=== PATIENT | female | born 1985 | race Caucasian/White ===

== ENCOUNTER 2017-07-04 13:15 | Emergency (ER) | payer OTHER, MEDICARE ==
[2017-07-04] MEDS ORDERED: NS 0.9% 1000 ML* 1,000 ML IV SCH (13:45)
--- NOTE | 2017-07-04 14:38 | RAD ---
HISTORY: Foreign body stuck in throat COMPARISONS: None VIEWS: 1: frontal portable view of the chest at 2:12 PM FINDINGS: LINES AND TUBES: None. CARDIOMEDIASTINAL SILHOUETTE: The cardiomediastinal silhouette is normal for portable technique. PLEURA: The costophrenic angles are sharp. No pleural abnormalities are noted. LUNG PARENCHYMA: The lungs are clear. ABDOMEN: The upper abdomen is clear. There is no subphrenic gas. BONES AND SOFT TISSUES: No bone or soft tissue abnormalities are noted. IMPRESSION: NO ACTIVE CARDIOPULMONARY DISEASE.
--- NOTE | 2017-07-04 15:08 | CONSULT ---
Consult Consult: Reason for consultation: Foreign body in esophagus HPI: 32 year old female with past medical history significant for rheumatoid arthritis and depression presents to ER complaining of inability to swallow. States she ate a chicken fajita and noted that it got hung up in her upper esophagus and would not move. States she attempted to try to drink water and it was immediately regurgitated. Admits to some chest discomfort but denies previous symptoms of heartburn, dysphagia, odynophagia, or recumbent regurgitation. States she took her morning medication without any difficulty. She was unable to keep anything down and came to ER for evaluation. No fevers or chills. Feels nauseous. Admits to having hayfever. REVIEW OF SYSTEMS: 10 point review of system is negative unless specified in HPI Past medical History Rheumatoid Arthritis Depression Chronic Headaches Past Surgical History Cholecystectomy ALL: Ergotamin, Sumatriptan, Hayfver MEDS Baclofen TAB* [Lioresal TAB*] 10 mg PO TID 11/24/14 [History Confirmed 11/29/14] Cyclobenzaprine HCl [Cyclobenzaprine HCl ER] 15 mg PO BEDTIME 11/24/14 [History Confirmed 11/29/14] Diclofenac Sodium [Diclofenac Sodium Dr] 50 mg PO Q8H PRN 11/24/14 [History Confirmed 11/29/14] Gabapentin TAB(NF) [Neurontin TAB(NF)] 900 mg PO TID 11/24/14 [History Confirmed 11/29/14] Ketorolac TAB * [Toradol TAB (NF)] 10 mg PO Q8H PRN 11/24/14 [History Confirmed 11/29/14] Levonorgestrel-Ethinyl Estradi [Seasonique] 1 tab PO BEDTIME 11/24/14 [History Confirmed 11/29/14] Magnesium Oxide (mg Supplement [Magnesium] 800 mg PO BID 11/24/14 [History Confirmed 11/29/14] Melatonin 3 mg PO BEDTIME 11/24/14 [History Confirmed 11/29/14] Metoclopramide TAB* [Reglan TAB*] 10 mg PO Q8H PRN 11/24/14 [History Confirmed 11/29/14] Midrin 1 tab PO Q4H PRN 11/24/14 [History Confirmed 11/29/14] Naproxen Sodium [Aleve] 220 mg PO Q8H PRN 11/24/14 [History Confirmed 11/29/14] Tramadol HCl 50 mg PO DAILY PRN 11/24/14 [History Confirmed 11/29/14] Tumeric 450 mg PO QAM 11/24/14 [History Confirmed 11/29/14] Vital Signs Temp Pulse Resp BP Pulse Ox 97.8 F 98 22 135/79 100 07/04/17 13:20 07/04/17 13:20 07/04/17 13:20 07/04/17 13:20 07/04/17 13:20 GEN: Well appearing female sitting in mild distress spitting in trough HEENT: Anicteric sclera oropharnyx clear CHEST clear to auscultation bilaterally CV: Regular rate rhythm s1 s2 no rubs or gallops ABD: Obese, Soft, nontender, normoactive bowel sounds, no hepatomegaly ExT: nontender, no obvious edema XRAY: no evidence of metallic objects or free air per my read. Impression: 32 year old female with above medical problems here with likely food impaction. 1. Foreign Body in Esophagus: Dysphagia likely related to food. Patient has history of allergies given possibility of EOE higher on differential, other causes including strictures, webs, rings, or less likely malignancy. Plan for urgent EGD today. 2. Please keep NPO and give IVFs. 3. Follow up recommendations post EGD.
[2017-07-04] MEDS ORDERED: fentaNYL* 50 MCG/ML 2 ML VIAL (100 MCG VIAL) ONE (15:32)
[2017-07-04] MEDS ORDERED: diPHENhydraMINE IV* 50 MG/ML 1 ml VIAL (BENADRYL) ONE (15:32)
[2017-07-04] MEDS ORDERED: Midazolam* 1 MG/ML 10 ML VIAL (10 MG) ONE (15:32)
[2017-07-04] MEDS ORDERED: Ondansetron INJ* 2 MG/ML VIAL ONE (16:03)
--- NOTE | 2017-07-04 17:38 | ED ---
Christiano Michaels Nikita, scribed for Slick Pitts MD on 07/04/17 at 1412 . Throat Pain/Nasal Congestion - HPI Summary HPI Summary: This patient is a 32 year old F presenting to ED with a chief complaint of foreign body stuck in throat since 1300. Pt ate chicken for lunch and could not swallow after. The CC is described as constant since onset. The patient rates the pain 3/10 in severity. Symptoms aggravated by nothing. Symptoms alleviated by nothing. Patient reports gagging, clear, productive cough, and hemoptysis. Patient denies dyspnea. - History of Current Complaint Chief Complaint: EDForeignBodyEsophag Time Seen by Provider: 07/04/17 13:58 Hx Obtained From: Patient Onset/Duration: Sudden Onset - 1300, Lasting Hours, Still Present Severity: Mild - 3/10 Cough: Other: - productive cough with clear sputum, hemoptysis, gagging; denies dyspnea - Allergies/Home Medications Allergies/Adverse Reactions: Allergies Allergy/AdvReac Type Severity Reaction Status Date / Time Ergotamine Allergy CHEST Verified 12/03/14 11:21 TIGHTNESS Sumatriptan [From Imitrex] Allergy CHEST Verified 12/03/14 11:21 TIGHTNESS HAYFEVER Allergy ITCHY EYES, Uncoded 12/03/14 11:21 PMH/Surg Hx/FS Hx/Imm Hx Endocrine/Hematology History: Denies: Hx Diabetes Musculoskeletal History: Reports: Hx Arthritis - POSSIBLE Denies: Hx Scoliosis Sensory History: Reports: Hx Contacts or Glasses - GLASSES Denies: Hx Hearing Aid Opthamlomology History: Reports: Hx Contacts or Glasses - GLASSES Neurological History: Reports: Hx Headaches - CHRONIC MIGRAINES, Hx Migraine - DAILY - CHRONIC, Other Neuro Impairments/Disorders - 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 11/01/2014 RADIO NERVE ABLATION IN NECK, OFFICE. CHOLECYSTECTOMY 11/29/2014 Hx Anesthesia Reactions: Yes - NAUSEA - (SPINAL OR EPIDURAL) Infectious Disease History: No Infectious Disease History: Denies: Traveled Outside the [place] in Last 30 Days - Family History Known Family History: Negative: Cardiac Disease, Diabetes - Social History Alcohol Use: None Substance Use Type: Reports: None Smoking Status (MU): Never Smoked Tobacco Review of Systems Positive: Other - foreign body stuck in throat, trouble swallowing, pain in throat, gagging Positive: Cough - clear, productive, hemoptysis, Other - denies dyspnea All Other Systems Reviewed And Are Negative: Yes Physical Exam Triage Information Reviewed: Yes Vital Signs On Initial Exam: Initial Vitals Temp Pulse Resp BP Pulse Ox 97.8 F 98 22 135/79 100 07/04/17 13:20 07/04/17 13:20 07/04/17 13:20 07/04/17 13:20 07/04/17 13:20 Vital Signs Reviewed: Yes Appearance: Positive: Well-Appearing, Pain Distress - moderate Skin: Positive: Warm, Skin Color Reflects Adequate Perfusion, Dry Head/Face: Positive: Normal Head/Face Inspection Eyes: Positive: EOMI, MARY BETH ENT: Positive: Other - Spitting clear sputum Neck: Positive: Supple, Nontender Respiratory/Lung Sounds: Positive: Clear to Auscultation, Breath Sounds Present , Other - coughing Cardiovascular: Positive: RRR Abdomen Description: Positive: Nontender, Soft Bowel Sounds: Positive: Present Musculoskeletal: Positive: Normal, Strength/ROM Intact Neurological: Positive: Normal, Sensory/Motor Intact, Alert, Oriented to Person Place, Time Psychiatric: Positive: Affect/Mood Appropriate Diagnostics - Vital Signs Vital Signs Temp Pulse Resp BP Pulse Ox 07/04/17 13:20 97.8 F 98 22 135/79 100 - Laboratory Lab Statement: Any lab studies that have been ordered have been reviewed, and results considered in the medical decision making process. - Radiology CXR Radiology Interpretation Completed By: Radiologist - NO ACTIVE CARDIOPULMONARY DISEASE. ED physician has reviewed this radiology report and agrees. Re-Evaluation - Re-Evaluation First Eval Re-Evaluation Time: 14:59 Comment: Pt asked what was going on with her condition/situation. EENT Course/Dx - Course Assessment/Plan: This patient is a 32 year old F presenting to ED with a chief complaint of foreign body stuck in throat since 1300. Pt ate chicken for lunch and could not swallow after. The CC is described as constant. The patient rates the pain 3/10 in severity. Symptoms aggravated by nothing. Symptoms alleviated by nothing. Patient reports gagging, clear, productive cough, and hemoptysis. Patient denies dyspnea. CXR reveals NO ACTIVE CARDIOPULMONARY DISEASE. ED physician has reviewed this radiology report and agrees. In the ED course, pt was given fluids. Medications reviewed. Consulted Dr. Bearden at 1403 who agrees to see pt in the ED. Pt will be discharged. Pt is agreeable with this plan. GI , DR BEARDEN, SAW PATIENT IN THE ED, DID AN EGD AND CLEARED THE ESOPHAGEAL FB. CRITICAL CARE TIME LESS THAN 30 MINUTES. - Diagnoses Provider Diagnoses: Esophageal foreign body - Provider Notifications Discussed Care Of Patient With: Otoniel Bearden Time Discussed With Above Provider: 14:03 Instructed by Provider To: Other - Consulted Dr. Bearden who agrees to see pt in the ED. Discharge - Discharge Plan Condition: Stable Disposition: HOME Patient Education Materials: Esophageal Foreign Body (ED) Referrals: Ronen Sutton MD [Primary Care Provider] - Additional Instructions: FOLLOW UP WITH GASTROENTEROLOGY. RETURN TO THE EMERGENCY DEPARTMENT FOR ANY WORSENING OF YOUR CONDITION OR QUESTIONS OR CONCERNS. The documentation as recorded by the Christiano cerna Nikita accurately reflects the service I personally performed and the decisions made by me, Slick Pitts MD.
[2017-07-04 17:50] VITALS: BP 138/64
--- NOTE | 2017-07-05 13:30 | PRO ---
PROCEDURE REPORT: DATE OF PROCEDURE: 07/04/17 PROCEDURE: EGD with foreign body removal using snare and Smith net. NARRATIVE: This is a 32-year-old female with past medical history significant for rheumatoid arthri tis, who presents to the emergency room complaining of dysphagia after eating chicken fajitas. The patient appeared to have a food bolus impaction and GI was consulted for evaluation. The patient melendez d a subsequent chest x-ray without any evidence of free air or metallic objects in the esophagus. MEDICATIONS GIVEN: 1. Diphenhydramine 50 mg. 2. Versed 9 mg. 3. Fentanyl 125 mcg. DESCRIPTION OF PROCEDURE: After the risks and benefits of the procedure were discussed in detail, s he verbalized understanding and agreed to the procedure. Informed consent was obtained. Time-out wa s then performed. The patient was placed in left lateral decubitus position. An EGD was then perfo rmed. Next, I advanced video adult gastroscope initially into the upper esophagus and noted foreign body impaction with food. Next, I elected to try to retrieve some of the food given its proximity to the upper esophageal sphincter. There were multiple attempts to intubate the esophagus and I was eventually successful using some gentle pressure as well as increasing the medication allowing the patient to be much more relaxed. I advanced a Smith net initially with some attempts to try to retri presley pieces of meat impaction; however, I was unsuccessful to grasp this again because of its proximi ty to the UES. The scope continued to move, so I aborted that maneuver. I then elected to try to c ut the meat impaction into smaller pieces using a cold snare, which was successful. Once I advanced the cold snare and cut through the meat impaction multiple times, I was able to find a small openin g and gently push the meat impaction all the way down into the stomach. The esophagus was examined in its entirety and was noted to have subtle rings. There was no obvious stricture noted. The subt le rings were suspicious for eosinophilic esophagitis. Next, I advanced the gastroscope into the st omach and there was no evidence of bleeding or ulcers on 4 views and retroflexion. Next, I advanced the gastroscope into the duodenum, which appeared completely normal without any evidence of active bleeding or old blood. The gastroscope was removed from the patient. Overall, the patient tolerate d the procedure well. There were no immediate complications. The patient remained in the emergency room for recovery. IMPRESSION: 1. Foreign body impaction, likely secondary to eosinophilic esophagitis. 2. Subtle circumferential rings throughout the esophagus, again suggestive of eosinophilic esophagi tis. 3. Normal stomach and duodenum. RECOMMENDATIONS: 1. Clear liquid diet today and soft diet tomorrow. 2. Start PPI therapy once daily with [id number] Prilosec and repeat EGD in 2 to 4 weeks, to t salena biopsies given the suspicion for eosinophilic esophagitis. [id number]/[facility] #: [id number]
== END 2017-07-04 17:49 | disposition home or self-care (01) ==
LOC: ED 13:15
DX: T18.108A Unspecified foreign body in esophagus causing other injury, initial encounter (principal); X58.XXXA Exposure to other specified factors, initial encounter; Y92.9 Unspecified place or not applicable; F32.9 Major depressive disorder, single episode, unspecified
CPT/HCPCS: 71010; 99156; 99157; 99282; J1200; J2250; J2405; J3010

== ENCOUNTER 2017-11-16 01:41 | Emergency (ER) | payer OTHER, MEDICARE ==
[2017-11-16] MEDS ORDERED: NS 0.9% 1000 ML* 1,000 ML IV ONE (02:31)
[2017-11-16] MEDS ORDERED: Ondansetron INJ* 2 MG/ML VIAL IV ONE (02:31)
[2017-11-16] MEDS ORDERED: Ketorolac INJ* 30 MG/ML 1 ML VIAL IV ONE (02:31)
[2017-11-16 03:13] LABS: ABS Basophils 0 10^3/ul (0-0.2); ABS Eosinophils 0 10^3/ul (0-0.6); ABS Lymphocytes 0.6 10^3/ul (1.0-4.8); ABS Monocytes 0.8 10^3/ul (0-0.8); ABS Neutrophils 3.3 10^3/ul (1.5-7.7); ABS Nucleated RBC 0 10^3/ul; Eosinophil % 0.1 % (0-6); Hematocrit 43 % (35-47); Lymphocyte % 12.1 % (25-47); Mean Corpuscular HGB Conc 35 g/dl (31-36); Mean Corpuscular Hemoglobin 34 pg (27-31); Mean Corpuscular Volume 96 fL (80-97); Mean Platelet Volume 9 um3 (7.4-10.4); Nucleated Red Blood Cells % 0.1; Platelet Count 158 10^3/ul (150-450); Red Blood Count 4.42 10^6/ul (4.0-5.4); Red Cell Distribution Width 13 % (10.5-15); White Blood Count 4.7 10^3/ul (3.5-10.8)
[2017-11-16 03:24] LABS: EGFR Non-African American 91.3 (>60)
[2017-11-16 04:01] LABS: Urine Appearance Cloudy; Urine Blood Negative (Negative); Urine Color Amber; Urine Ketones 1+ (Negative); Urine Protein 2+(100 mg/dL) (Negative); Urine Specific Gravity 1.026 (1.010-1.030); Urine Urobilinogen Positive (Negative)
[2017-11-16] MEDS ORDERED: cefTRIAXone(*) 1 GM in NS 0.9% 50 ML* 50 ML IVPB ONE (04:04)
[2017-11-16 04:43] VITALS: BP 104/64
--- NOTE | 2017-11-16 06:14 | ED ---
Colette Michaels Julia, scribed for Obed Márquez MD on 11/16/17 at 0410 . Abdominal Pain/Female - HPI Summary HPI Summary: This patient is a 32 year old F BIBA to [facility] accompanied by family with a chief complaint of constant sudden L sided abdominal pain since evening of worsening today with radiation to L flank. Patient reports one bout of vomiting on 11/14/17, nausea, and diaphoresis. Patient denies dysuria. The patient rates the pain 7/10 in severity. Symptoms unchanged by position. Patient has hx of ovarian cysts. Patient has an IUD and does not have regular normal menstrual periods. - History of Current Complaint Chief Complaint: EDAbdPain Stated Complaint: ABD PAIN Time Seen by Provider: 11/16/17 02:25 Hx Obtained From: Patient Onset/Duration: Lasting Days Timing: Constant Pain Intensity: 7 Pain Scale Used: 0-10 Numeric Location: Flank, Other - left sided Radiates to: Flank - L Aggravating Factor(s): Nothing Alleviating Factor(s): Nothing Associated Signs and Symptoms: Positive: Vomiting, Other: - diaphoresis Allergies/Adverse Reactions: Allergies Allergy/AdvReac Type Severity Reaction Status Date / Time ergotamine AdvReac Fever Verified 11/16/17 01:48 HAYFEVER Allergy ITCHY EYES, Uncoded 12/03/14 11:21 PMH/Surg Hx/FS Hx/Imm Hx Endocrine/Hematology History: Denies: Hx Diabetes Musculoskeletal History: Reports: Hx Arthritis - POSSIBLE Denies: Hx Scoliosis Sensory History: Reports: Hx Contacts or Glasses - GLASSES Denies: Hx Hearing Aid Opthamlomology History: Reports: Hx Contacts or Glasses - GLASSES Neurological History: Reports: Hx Headaches - CHRONIC MIGRAINES, Hx Migraine - DAILY - CHRONIC, Other Neuro Impairments/Disorders - 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 11/01/2014 RADIO NERVE ABLATION IN NECK, OFFICE. CHOLECYSTECTOMY 11/29/2014. IUD implant Hx Anesthesia Reactions: Yes - NAUSEA - (SPINAL OR EPIDURAL) Infectious Disease History: No Infectious Disease History: Denies: Traveled Outside the [place] in Last 30 Days - Family History Known Family History: Negative: Cardiac Disease, Diabetes - Social History Alcohol Use: None Substance Use Type: Reports: None Smoking Status (MU): Never Smoked Tobacco Review of Systems Positive: Skin Diaphoresis Positive: Abdominal Pain, Vomiting, Nausea Negative: dysuria All Other Systems Reviewed And Are Negative: Yes Physical Exam - Summary Physical Exam Summary: Appearance: Well appearing, no pain distress Skin: warm, dry, reflects adequate perfusion Head/face: normal Eyes: EOMI, MARY BETH ENT: normal Neck: supple, non-tender Respiratory: CTA, breath sounds present Cardiovascular: RRR, pulses symmetrical Abdomen: non-tender, soft, no CVA tenderness Bowel: present Musculoskeletal: normal, strength/ROM intact Neuro: normal, sensory motor intact, A&Ox3 Triage Information Reviewed: Yes Vital Signs On Initial Exam: Initial Vitals Temp Pulse Resp BP Pulse Ox 97.4 F 97 20 127/71 98 11/16/17 01:44 11/16/17 01:44 11/16/17 01:44 11/16/17 01:44 11/16/17 01:44 Vital Signs Reviewed: Yes Diagnostics - Vital Signs Vital Signs Temp Pulse Resp BP Pulse Ox 11/16/17 01:44 97.4 F 97 20 127/71 98 - Laboratory Lab Results: Lab Results 11/16/17 11/16/17 11/16/17 Range/Units 02:50 02:50 02:50 WBC 4.7 (3.5-10.8) 10^3/ul RBC 4.42 (4.0-5.4) 10^6/ul Hgb 15.0 (12.0-16.0) g/dl Hct 43 (35-47) % MCV 96 (80-97) fL MCH 34 H (27-31) pg MCHC 35 (31-36) g/dl RDW 13 (10.5-15) % Plt Count 158 (150-450) 10^3/ul MPV 9 (7.4-10.4) um3 Neut % (Auto) 70.2 (38-83) % Lymph % (Auto) 12.1 L (25-47) % [place] % (Auto) 17.2 H (1-9) % Eos % (Auto) 0.1 (0-6) % Baso % (Auto) 0.4 (0-2) % Absolute Neuts (auto) 3.3 (1.5-7.7) 10^3/ul Absolute Lymphs (auto) 0.6 L (1.0-4.8) 10^3/ul Absolute Monos (auto) 0.8 (0-0.8) 10^3/ul Absolute Eos (auto) 0 (0-0.6) 10^3/ul Absolute Basos (auto) 0 (0-0.2) 10^3/ul Absolute Nucleated RBC 0 10^3/ul Nucleated RBC % 0.1 Sodium 134 (133-145) mmol/L Potassium 3.1 L (3.5-5.0) mmol/L Chloride 105 (101-111) mmol/L Carbon Dioxide 21 L (22-32) mmol/L Anion Gap 8 (2-11) mmol/L BUN 15 (6-24) mg/dL Creatinine 0.73 (0.51-0.95) mg/dL Est GFR ( Amer) 117.4 (>60) Est GFR (Non-Af Amer) 91.3 (>60) BUN/Creatinine Ratio 20.5 H (8-20) Glucose 114 H (70-100) mg/dL Lactic Acid 1.5 (0.5-2.0) mmol/L Calcium 8.1 L (8.6-10.3) mg/dL Total Bilirubin 0.60 (0.2-1.0) mg/dL AST 44 H (13-39) U/L ALT 73 H (7-52) U/L Alkaline Phosphatase 68 (34-104) U/L Total Protein 6.5 (6.4-8.9) g/dL Albumin 3.8 (3.2-5.2) g/dL Globulin 2.7 (2-4) g/dL Albumin/Globulin Ratio 1.4 (1-3) Lipase 28 (11.0-82.0) U/L Beta HCG, Quant < 0.60 mIU/mL Urine Color Urine Appearance Urine pH (5-9) Ur Specific [place] (1.010-1.030) Urine Protein (Negative) Urine Ketones (Negative) Urine Blood (Negative) Urine Nitrate (Negative) Urine Bilirubin (Negative) Urine Urobilinogen (Negative) Ur Leukocyte Esterase (Negative) Urine WBC (Auto) (Absent) Urine RBC (Auto) (Absent) Ur Squamous Epith Cells (Absent) Ur Transition Epith Cell (Absent) Urine Bacteria (Absent) Urine Glucose (Negative) 11/16/17 Range/Units 03:43 WBC (3.5-10.8) 10^3/ul RBC (4.0-5.4) 10^6/ul Hgb (12.0-16.0) g/dl Hct (35-47) % MCV (80-97) fL MCH (27-31) pg MCHC (31-36) g/dl RDW (10.5-15) % Plt Count (150-450) 10^3/ul MPV (7.4-10.4) um3 Neut % (Auto) (38-83) % Lymph % (Auto) (25-47) % [place] % (Auto) (1-9) % Eos % (Auto) (0-6) % Baso % (Auto) (0-2) % Absolute Neuts (auto) (1.5-7.7) 10^3/ul Absolute Lymphs (auto) (1.0-4.8) 10^3/ul Absolute Monos (auto) (0-0.8) 10^3/ul Absolute Eos (auto) (0-0.6) 10^3/ul Absolute Basos (auto) (0-0.2) 10^3/ul Absolute Nucleated RBC 10^3/ul Nucleated RBC % Sodium (133-145) mmol/L Potassium (3.5-5.0) mmol/L Chloride (101-111) mmol/L Carbon Dioxide (22-32) mmol/L Anion Gap (2-11) mmol/L BUN (6-24) mg/dL Creatinine (0.51-0.95) mg/dL Est GFR ( Amer) (>60) Est GFR (Non-Af Amer) (>60) BUN/Creatinine Ratio (8-20) Glucose (70-100) mg/dL Lactic Acid (0.5-2.0) mmol/L Calcium (8.6-10.3) mg/dL Total Bilirubin (0.2-1.0) mg/dL AST (13-39) U/L ALT (7-52) U/L Alkaline Phosphatase (34-104) U/L Total Protein (6.4-8.9) g/dL Albumin (3.2-5.2) g/dL Globulin (2-4) g/dL Albumin/Globulin Ratio (1-3) Lipase (11.0-82.0) U/L Beta HCG, Quant mIU/mL Urine Color Tiffany Urine Appearance Cloudy Urine pH 5.0 (5-9) Ur Specific [place] 1.026 (1.010-1.030) Urine Protein 2+(100 mg/dl) H (Negative) Urine Ketones 1+ H (Negative) Urine Blood Negative (Negative) Urine Nitrate Negative (Negative) Urine Bilirubin Negative (Negative) Urine Urobilinogen Positive H (Negative) Ur Leukocyte Esterase 3+ H (Negative) Urine WBC (Auto) 3+(>20/hpf) H (Absent) Urine RBC (Auto) Absent (Absent) Ur Squamous Epith Cells Present H (Absent) Ur Transition Epith Cell Present H (Absent) Urine Bacteria Absent (Absent) Urine Glucose Negative (Negative) Result Diagrams: 11/16/17 02:50 11/16/17 02:50 Lab Statement: Any lab studies that have been ordered have been reviewed, and results considered in the medical decision making process. - CT A/P CT Interpretation Completed By: ED Physician - constipation, Radiologist - High density in renal medullary pyramids suggests medullary sponge kidney without obstruction. ED Physician has reviewed this report. Re-Evaluation - Re-Evaluation 1 Re-Evaluation Time: 04:00 Change: Improved - Pt's pain is resolved Abdominal Pain Fem Course/Dx - Course Course Of Treatment: Pt with L flank pain but no pain with palpation of abd. 3+ leuk in urine but no blood. CT shows no evidence of pathology, although significant pelvic stool seen on inspection of it. IV rocephin given for possible UTI (no bacteria seen). Pain gone with toradol. Abd soft and benign. Supposed hx of PCOS but adnexa not enlarged on CT. Torsion very unlikely, especially with benign exam. Tx with abx, symptomatically. Close f/u with PMD. - Diagnoses Differential Diagnosis: Positive: Constipation, Ovarian Cyst, , Renal Colic, Urinary Tract Infection Provider Diagnoses: UTI (urinary tract infection), Left sided abdominal pain, Constipation, Medullary sponge kidney Discharge - Discharge Plan Condition: Good Disposition: HOME Prescriptions: Bisacodyl SUPP* [Dulcolax Supp*] 10 mg PO DAILY #3 supp Cephalexin CAP* [Keflex CAP*] 500 mg PO TID #15 cap Hyoscyamine Sulfate [Oscimin] 0.125 mg PO Q4H PRN #20 tab.rapdis PRN Reason: cramping Ondansetron [Zofran Odt] 4 mg PO TID PRN #10 tab.rapdis PRN Reason: Nausea Polyethylene Glycol 3350* [Miralax*] 17 gm PO BID PRN #10 packet PRN Reason: Constipation Patient Education Materials: Urinary Tract Infection in Women (ED), Acute Abdominal Pain (ED) Referrals: Ronen Sutton MD [Primary Care Provider] - Additional Instructions: Drink plenty of fluids. Increase fiber in diet. Return with fever, vomiting, return of significant pain, worse or other concerns as discussed The documentation as recorded by the Colette cerna Julia accurately reflects the service I personally performed and the decisions made by me, Obed Márquez MD.
--- NOTE | 2017-11-16 08:00 | RAD ---
Indication: Left-sided flank pain. CT of the abdomen and pelvis was performed without oral or IV contrast administration. Coronal and sagittal reconstructed images were obtained. The lung bases demonstrate no pleural fluid, nodules or masses. Heart is of normal size without evidence of pericardial effusion. Liver is normal in size. No focal lesions or intrahepatic ductal dilatation is noted. Gallbladder has been surgically resected. Pancreas demonstrates no mass or pancreatic duct dilatation. The common duct is not dilated. The spleen is normal in size. No adrenal masses are noted. The kidneys demonstrate no hydronephrosis. High density cortices are noted bilaterally consistent with renal tubular ectasia. No retroperitoneal lymphadenopathy is noted. No dilated loops of bowel are noted. The colon is filled with stool. No retroperitoneal adenopathy is noted. No dilated loops of bowel are noted. The colon is filled with stool. IUD is in place. No hernias are identified. IMPRESSION: High density renal medullary pyramids suggestive of renal tubular ectasia. No evidence of obstruction is noted. IUD in place.
== END 2017-11-16 04:43 | disposition home or self-care (01) ==
LOC: ED 01:41
DX: N39.0 Urinary tract infection, site not specified (principal); R10.32 Left lower quadrant pain; K59.00 Constipation, unspecified; Q61.5 Medullary cystic kidney; Z97.5 Presence of (intrauterine) contraceptive device; Z32.02 Encounter for pregnancy test, result negative; Z90.49 Acquired absence of other specified parts of digestive tract
CPT/HCPCS: 36415; 74176; 80053; 81003; 81015; 83605; 83690; 84702; 85025; 87086; 96361; 96365; 96375; 99283; J0696; J1885; J2405

== ENCOUNTER 2018-02-10 10:06 | Inpatient (IN) | payer OTHER, MEDICARE ==
[~2018-02-10 10:06] MED LIST: Buffered Lidocaine 0.9% SYRIN* 5 ML/SYR SYRINGE INTRADERM ONE; Sodium Citrate/Citric Acid* 15 ML UDC PO ONE
[2018-02-10] MEDS ORDERED: ceFAZolin 2 GM PREMIX (*) 2 GM/50 ML BAG IVPB ONE (10:07)
[2018-02-10] MEDS ORDERED: Buffered Lidocaine 0.9% SYRIN* 5 ML/SYR SYRINGE ONE (10:07)
[2018-02-10] MEDS ORDERED: ceFAZolin 1 GM in Dextrose (*) 0 GM/0 ML BAG IVPB ONE (10:07)
[2018-02-10] MEDS ORDERED: Heparin VIAL(*) 5000 UNITS/ML VIAL (FIVE THOUSAND) ONE (10:07)
[2018-02-10] MEDS ORDERED: Sodium Citrate/Citric Acid* 15 ML UDC ONE (10:07)
[2018-02-10] MEDS ORDERED: Clindamycin 900 MG IVPREMIX(* 900 MG/50 ML SDV IV ONE (10:07)
[2018-02-10] MEDS ORDERED: ceFAZolin 1 GM in Dextrose (*) 1 GM/50 ML BAG IVPB ONE (10:08)
[2018-02-10] MEDS ORDERED: Bupivacaine 0.25% SDV* 30 ML ONE ×2 (12:23→13:36)
[2018-02-10] MEDS ORDERED: Methylene Blue 0.5 %* 50 MG/10 ML AMP IV ONE (12:23)
[2018-02-10] MEDS ORDERED: Propofol* 10 MG/ML 20 ML BTL IV PUSH ONE (12:37)
[2018-02-10] MEDS ORDERED: Rocuronium* 10 MG/ML VIAL ONE (12:37)
[2018-02-10] MEDS ORDERED: Lidocaine 2% PF * 5 ML VIAL ONE (12:37)
[2018-02-10] MEDS ORDERED: Scopolamine 1.5 mg* PATCH ONE (12:39)
[2018-02-10] MEDS ORDERED: Naloxone* 0.4 MG/ML 1 ML VIAL IV PRN (12:42)
[2018-02-10] MEDS ORDERED: Ondansetron INJ* 2 MG/ML VIAL IV PRN (12:42)
[2018-02-10] MEDS ORDERED: fentaNYL* 50 MCG/ML 2 ML VIAL (100 MCG VIAL) ONE ×5 (12:56→17:01)
[2018-02-10] MEDS ORDERED: Scopolamine 1.5 mg* PATCH TRANSDERM SCH (13:00)
[2018-02-10] MEDS ORDERED: Cisatracurium* 2 MG/ML MDV 5 ML ONE (14:05)
[2018-02-10] MEDS ORDERED: Neostigmine Methylsulfate* 1 MG/ML 10 ML VIAL (1 mg/ml) ONE (15:33)
[2018-02-10] MEDS ORDERED: Glycopyrrolate IV* 0.2 MG/ML 1 ML VIAL ONE (15:33)
[2018-02-10] MEDS: fentaNYL* 50 MCG/ML 2 ML VIAL (100 MCG VIAL) IV PRN ×5 (16:25→17:03)
[2018-02-10] MEDS ORDERED: DiMENhydriNATE IV* 50 MG/ML VIAL ONE (16:40)
[2018-02-10] MEDS ORDERED: diPHENhydraMINE IV* 50 MG/ML 1 ml VIAL (BENADRYL) SLOW PUSH PRN (16:52)
[2018-02-10] MEDS ORDERED: Acetaminophen ADULT LIQ* 650 MG/20.3 ML UDC PO PRN (16:52)
[2018-02-10] MEDS ORDERED: HYDROmorphone INJ* 2 MG/ML CARPUJECT SYRINGE IV PRN ×2 (16:52)
[2018-02-10] MEDS ORDERED: Ondansetron ODT TAB* 4 MG SL PRN (16:59)
[2018-02-10] MEDS ORDERED: ZOLMITRIPTAN 5 MG SL PRN (16:59)
--- NOTE | 2018-02-10 17:03 | OP ---
Operative Report - Blank - Operative Report Date of Operation: 02/10/18 Note: Preop Dx: morbid obesity Postop Dx: same Procedure: laparoscopic donna en y gastric bypass Anesthesia: GET Surgeon: Claire Asst: KURT Gonzalez; DESIREE Paniagua Fluids: 1400 ml EBL: < 100 ml Drains: none Specimen: none Findings: dictated
[2018-02-10] MEDS: Ketorolac INJ* 30 MG/ML 1 ML VIAL IV PRN (18:10)
[2018-02-10] MEDS: Ondansetron 40 MG VIAL* 2 MG/ML 20 ML VIAL IV PRN (20:05)
[2018-02-10] MEDS: Famotidine IV* 10 MG/ML 2 ML (20 mg) IV SLOW PU SCH (21:06)
[2018-02-10] MEDS: Heparin VIAL(*) 5000 UNITS/ML VIAL (FIVE THOUSAND) SUBCUT SCH (22:31)
[2018-02-11] MEDS: Ketorolac INJ* 30 MG/ML 1 ML VIAL IV PRN ×3 (03:45→17:47)
[2018-02-11] MEDS: Ondansetron 40 MG VIAL* 2 MG/ML 20 ML VIAL IV PRN ×2 (03:45→09:46)
[2018-02-11] MEDS: Heparin VIAL(*) 5000 UNITS/ML VIAL (FIVE THOUSAND) SUBCUT SCH ×3 (05:50→23:10)
--- NOTE | 2018-02-11 09:13 | PN ---
Progress Note - Progress Note Date of Service: 02/11/18 SOAP: Subjective: pt seen and examined. abdo pain, back pain, headache Objective: af vss uo good lungs clear abdo: soft/ ND/ tender w/o rebound no calf tenderness Assessment: POD1 rygb, hd stable Plan: UGI today resume home meds pain control d/c elvin
[2018-02-11] MEDS: Famotidine IV* 10 MG/ML 2 ML (20 mg) IV SLOW PU SCH ×2 (09:46→20:00)
--- NOTE | 2018-02-11 10:29 | RAD ---
INDICATION: Status post laparoscopic bypass surgery. COMPARISON: There are no prior studies available for comparison. Technique: An upper GI series examination was performed with Gastrografin contrast. Approximately 1.0 minute of intermittent fluoroscopic guidance were used during the exam. Findings: The esophagus appear normal. The patient is status post laparoscopic Carine-en-Y gastric bypass surgery. The gastric pouch small bowel anastomosis appears patent. There is no evidence for intraperitoneal leakage of contrast. There appears to be normal small bowel peristalsis. Several surgical are noted in the right upper quadrant consistent with a prior cholecystectomy. IMPRESSION: STATUS POST CARINE-EN-Y GASTRIC BYPASS SURGERY, NO EVIDENCE FOR OBSTRUCTION OR INTRAPERITONEAL LEAKAGE OF CONTRAST. CPT II Codes: G9500
[2018-02-11] MEDS ORDERED: Scopolamine PATCH Remove* 1 NOTE MISC PATCH OFF ONE (13:00)
[2018-02-11] MEDS: HYDROcodone/ACET. 7.5/325 LIQ* 15 ML UDC PO PRN ×2 (14:03→20:02)
[2018-02-11] MEDS ORDERED: NS 0.9% 500 ML* 500 ML IV ONE (14:59)
[2018-02-11] MEDS ORDERED: ZOLMitriptan ODT(NF) 5 MG TAB SL PRN (15:01)
[2018-02-11] MEDS: D5W 1/2 NS KCl 20 Meq 1000 ML* 1,000 ML IV SCH (17:04)
[2018-02-11] MEDS ORDERED: ZOLMITRIPTAN 5 MG PO PRN (17:13)
[2018-02-12] MEDS: Ketorolac INJ* 30 MG/ML 1 ML VIAL IV PRN ×2 (01:05→09:43)
[2018-02-12] MEDS: D5W 1/2 NS KCl 20 Meq 1000 ML* 1,000 ML IV SCH (01:05)
[2018-02-12] MEDS: Heparin VIAL(*) 5000 UNITS/ML VIAL (FIVE THOUSAND) SUBCUT SCH (06:17)
[2018-02-12] MEDS: HYDROcodone/ACET. 7.5/325 LIQ* 15 ML UDC PO PRN (06:17)
[2018-02-12 07:46] VITALS: BP 128/68
[2018-02-12] MEDS: Famotidine IV* 10 MG/ML 2 ML (20 mg) IV SLOW PU SCH (09:05)
--- NOTE | 2018-02-13 04:25 | DS ---
CC: Dr. Sutton; [facility] Metabolic and Bariatric Surgery DISCHARGE SUMMARY: DATE OF ADMISSION: DATE OF DISCHARGE: 02/12/18 HOSPITAL COURSE: Ms. Becker is a 32-year-old female who was admitted on same day of surgery, 02/10/18, with a diagnosis of clinically severe obesity, hypercholesterolemia, polycystic ovary disease, and r heumatoid arthritis, who underwent a laparoscopic Carine-en-Y gastric bypass on day of surgery, see ope tomasa report for details. Postoperatively, the patient was transferred to the PACU and onto the [facility] rt stay surgical unit. Patient did well for the overnight period and on postoperative day 1 was sent for an upper GI study. This was within normal limits. The patient was started on a bariatric clear diet and some of her ho me medications were restarted. By postop day 2, the patient was tolerating clear liquid diet and was ready for discharge. On day of discharge, the patient was examined. She was afebrile, vital signs were stable. Alert and oriented x3, in no apparent distress. Head, eyes, ears, nose and throat: Normocephalic, atraumatic . Sclerae anicteric. Mucous membranes are moist. Lungs: Clear to auscultation bilaterally. Abdom en: Soft, nondistended. Incisional tenderness. Dressings removed. No erythema. Steri-Strips in tahir ce. Extremities within normal limits. IMPRESSION: Postoperative day 2, Carine-en-Y gastric bypass. PLAN: Plan is for discharge home for planned followup on Thursday at the [facility] for Metabolic [facility] for routine followup visit. The patient will restart her Ambien, her Zomig, Namenda, magnesium, leucovorin, Plaquenil, Cymbalta a nd Wellbutrin. She will undergo Remicade injection through her credit specialist's office and we will h old her methotrexate for now. The patient can resume her Neurontin as needed. The patient understan ds the plan and we will see her next week. She will be following up with her primary care doctor as well as her credit specialist. [id number]/[facility] #: [id number]
--- NOTE | 2018-02-13 21:38 | OP ---
CC: Dr. Ronen Sutton * DATE OF OPERATION: 02/10/18 - ROOM #335 DATE OF : 81 SURGEON: Matti Rangel MD RETAIL FINANCIAL ANALYST: KURT Shook ANESTHESIA: General anesthesia. PRE-OP DIAGNOSIS: Clinically severe obesity. POST-OP DIAGNOSIS: Clinically severe obesity. OPERATIVE PROCEDURE: Laparoscopic Carine-en-Y gastric bypass. ESTIMATED BLOOD LOSS: Less than 100 cc. FLUIDS: 1400 cc of crystalloid fluid given. DRAINS: None. SPECIMENS: None. DESCRIPTION OF PROCEDURE: The patient was identified in the preoperative area. Case discussed with her again. Consent was signed. She was marked and brought to the operating room and placed on the operating table in the supine position. Preoperative antibiotics were given. Sequential devices were placed on bilateral lower extremities. General anesthesia was induced. The patient's abdomen was prepped and draped in the standard surgical fashion and time-out was performed. Folds of the umbilicus were elevated anteriorly and a Veress needle was inserted into the abdomen, which was allowed to insufflate to a pressure of 15 mmHg. The patient tolerated the insufflation well. [place] between the umbilicus and xiphoid, a 12-mm trocar was inserted just left of midline. Laparoscope was inserted through this and there was no evidence of injury from the trocar insertion or from the Veress needle, which was then removed. Additional trocars were then placed in the following position: 12 mm and 5 mm in the left upper quadrant, and 12 mm and 5 mm in the right upper quadrant. Attention was turned to the omentum. The omentum was reflected superiorly. The transverse colon was identified and the ligament of Treitz was clearly demarcated. We counted off approximately 60 cm from the ligament of Treitz. We see that this portion of the bowel could easily come up to the epigastrium. We made a window through the mesentery and transected the small bowel at the site with a 45 mm allen FABIANA stapling device. The proximal portion which would become the biliary pancreatic limb was identified and an enterotomy made at this site with the LigaSure device. Next, Carine limb was counted off approximately 90 cm and another enterotomy was made and the jejunojejunostomy was created with a 60-mm allen FABIANA stapling device. The common defect was reapproximated with 2-0 silk sutures in a figure-of- eight fashion and the mesenteric defect was similarly closed. Attention was then turned to the stomach. A Anders retractor was inserted through the subxiphoid incision and the liver was retracted anteriorly into the right. This exposed the gastroesophageal fat pad, which was grasped and retracted towards the right lower quadrant. Blunt dissection was carried out at this site to expose the left miranda. Next, a retrogastric tunnel was made along the lesser curvature, approximately the third crossing vessel. A 45-mm allen FABIANA stapling device was fired at this and the pouch was completed with an additional 60 and then a 45-mm allen FABIANA stapling device. It appeared appropriate size. We next placed an Trace tube by the anesthesiologist into the stomach pouch. Next, the Carine limb was brought up in that position to this, it was sutured with 2-0 silk stay sutures. Next, the gastrojejunostomy was created with a 30 mm FABIANA stapling device allen load after making gastrostomy and enterotomy. The common defect was reapproximated with running 3-0 PDS sutures using two of them in all. Next, the Trace tube was advanced into the small bowel through the stomach pouch. The bowel was clamped and a methylene blue dye test was performed. The suture line appeared intact; however, there was evidence of blue dye on the gauze coming from posterior. The most proximal stay suture of silk was cut and we looked at the staple line and the enzo were somewhat exposed, but there was no evidence of blue dye at this site, but this appeared to be the area and a 2-0 silk suture was used to shore up this staple line posteriorly. Additional area at the distal aspect of the common defect of the small bowel showed a possible opening at this site. Although there was no blue dye at this site, we did reapproximate this with a simple silk suture. Methylene blue dye test was again performed in a similar fashion and there was no evidence of blue dye after distending the pouch in the proximal Carine limb. Gauze was removed and review of the abdomen showed no bleeding. The Anders retractor was removed. The abdomen was allowed to collapse. Trocars removed under direct vision and all six skin incisions were reapproximated with 4-0 Monocryl subcuticular sutures followed by Steri-Strips and sterile dressing. The patient tolerated the procedure well, was woken up in the OR, and transferred to the PACU in stable condition. [id number] #: [id number] [facility]
== END 2018-02-12 11:15 | disposition home or self-care (01) | DRG 403 ==
LOC: AA 10:06 → SSU 17:30
PROVIDERS: ADMIT Surgery; ATTEND Surgery
PROC: 0D164ZA Bypass Stomach to Jejunum, Percutaneous Endoscopic Approach (ICD-10-PCS; principal; 2018-02-10 11:30)
DX: E66.01 Morbid (severe) obesity due to excess calories (principal); E28.2 Polycystic ovarian syndrome; G43.909 Migraine, unspecified, not intractable, without status migrainosus; F32.9 Major depressive disorder, single episode, unspecified; M06.89 Other specified rheumatoid arthritis, multiple sites; E78.00 Pure hypercholesterolemia, unspecified; E78.2 Mixed hyperlipidemia; K58.9 Irritable bowel syndrome, unspecified; E07.9 Disorder of thyroid, unspecified; Z90.49 Acquired absence of other specified parts of digestive tract; Z88.8 Allergy status to other drugs, medicaments and biological substances; Z68.41 Body mass index [BMI] 40.0-44.9, adult; Z80.0 Family history of malignant neoplasm of digestive organs; Z80.49 Family history of malignant neoplasm of other genital organs; Z83.3 Family history of diabetes mellitus; Z83.49 Family history of other endocrine, nutritional and metabolic diseases; Z82.49 Family history of ischemic heart disease and other diseases of the circulatory system; Z80.6 Family history of leukemia; Z81.8 Family history of other mental and behavioral disorders; Z82.61 Family history of arthritis; Z56.0 Unemployment, unspecified
CPT/HCPCS: 43644; 74246; 81025; A9270-GY; C1776; J0690; J1170; J1240; J1644; J1885; J2704; J2710; J3010